=== PATIENT | male | born 1960 | race Caucasian/White ===

== ENCOUNTER 2022-04-08 08:18 | Emergency (ER) | payer OTHER, SELFPAY ==
--- NOTE | 2022-04-08 08:22 | ED.URI ---
HPI - URI/Sore Throat General Chief Complaint: Upper Respiratory Infection Stated Complaint: cough/chest congestion Time Seen by Provider: 04/08/22 08:29 Source: patient and RN notes reviewed Mode of arrival: ambulatory Limitations: no limitations History of Present Illness HPI Narrative: 62-year-old male presents to the [facility] with cough and congestion. Patient reports that he has been taking Mucinex. Symptoms started at least a week ago. States he cannot take a lot of medications due to stomach upset, acid reflux. Denies fevers. No chest pain or abdominal pain. No swelling in extremities. History of hypertension, for her to take medication and Related Data Home Medications Medication Instructions Recorded Confirmed benazepril 20 1 tablet DAILY 04/08/22 04/08/22 mg-hydrochlorothiazide 12.5 mg tablet esomeprazole magnesium 20 mg 20 mg PO DAILY 04/08/22 04/08/22 capsule,delayed release (Nexium) Allergies Allergy/AdvReac Type Severity Reaction Status Date / Time Penicillins Allergy Unknown Verified 04/08/22 08:35 NSAIDS (Non-Steroidal AdvReac Gastrointestinal Verified 04/08/22 08:35 Anti-Inflamma Upset Review of Systems Review of Systems: All systems reviewed & are unremarkable except as noted in HPI and below Constitutional: Constitutional: Reports no additional constitutional complaints, Denies chills and Denies fever(s) Eyes: Eyes: Reports no additional eye complaints ENT: Reports as per HPI and Reports nasal congestion Cardiovascular: Cardiovascular: Reports no additional cardiovascular complaints Respiratory: Respiratory: Reports as per HPI, Reports chest congestion and Reports cough Gastrointestinal: Gastrointestinal: Reports no additional gastrointestinal complaints Musculoskeletal: Musculoskeletal: Reports no additional musculoskeletal complaints Integumentary/Breasts: Skin/Breast: Reports system reviewed and no additional complaints, except as docu Neurologic: Reports system reviewed and no additional complaints, except as documented Psychiatric: Psychiatric: Reports no additional psychiatric complaints Allergic/Immunologic: Allergic/Immunologic: Reports no additional allergic/immunologic complaints [facility] Past Medical History Medical History (Updated 04/08/22 @ 09:05 by Roxy Walker APRN) H/O gastroesophageal reflux (GERD) Hypertension Surgical History Surgical History (Updated 04/08/22 @ 08:35 by Roxy Walker APRN) History of hip replacement Social History Social History (Updated 04/08/22 @ 08:35 by ALANNAH Gonzalez Living arrangements: with family Gender identity (if verbalized by the patient): Male Comments At the time of my signature, I reviewed and agree with the nursing past medical, surgical, social, and family history. There is no relevant family history pertinent to the patient complaint. Exam Const: General: healthy appearing, no acute distress, alert and well nourished Nutritional Appearance: well nourished Orientation/consciousness: patient oriented x3 Limitations: no limitations HENMT: Head: normal to inspection Ears: external ears normal, TM's normal bilaterally and EAC's normal Face/Nose/Sinus: Normal external nose present and Nasal discharge present clear bilateral Face and sinus: normal facial exam Throat: posterior oropharynx normal, uvula midline and postnasal drainage Eyes: General: appearance normal, both eyes and all related structures Conjunctivae: conjunctivae normal Pupils: Equal, round and reactive pupils present Neck: Neck: normal visual inspection, no lymphadenopathy and no meningeal signs Chest: Chest palpation & inspection: normal inspection of the chest Resp: Effort & Inspection: normal respiratory effort and no use of accessory muscles Auscultation: clear to auscultation bilaterally, no crackles, no rales, no rhonchi and no wheezes Cardio: Rate: regular rate Rhythm: regular rhythm Skin: General
[2022-04-08 08:29] VITALS: BP 154/97; PULSE 91; RESP 16; TEMP 36.3; O2SAT 98
== END 2022-04-08 08:45 | disposition home or self-care (01) ==
PROVIDERS: Emergency Provider Nurse Practitioner
DX: J32.9 Chronic sinusitis, unspecified (principal); R09.82 Postnasal drip; I10 Essential (primary) hypertension; K21.9 Gastro-esophageal reflux disease without esophagitis; Z96.649 Presence of unspecified artificial hip joint
CPT/HCPCS: 99213; G0463